=== PATIENT | male | born 1985 | race Caucasian/White ===

== ENCOUNTER 2020-06-29 18:06 | Emergency (ER) | payer BC ==
[2020-06-29 18:36] LABS: EOS # 0.4 (0.04-0.40); HEMATOCRIT 45.3 % (42.0-52.0); HEMOGLOBIN 14.9 g/dL (13.5-18.0); LYMPH# 3.1 (1.50-4.00); MEAN CELL VOLUME 86 fl (78-100); MEAN CORPUSCULAR HEMOGLOBIN 28 pg (27-31); MEAN CORPUSCULAR HGB CONC 33 g/dL (33-37); MEAN PLATELET VOLUME 9.3 fl (7.4-10.4); MONO # 0.8 (0.20-0.80); NEU # 5.6 (1.40-6.50); PLATELET COUNT 266 K/mm3 (130-400); RED BLOOD COUNT 5.29 M/mm3 (4.20-5.60); RED CELL DISTRIBUTION WIDTH 14.2 % (11.5-14.5); WHITE BLOOD COUNT 9.9 K/mm3 (4.8-10.8)
[2020-06-29 18:47] LABS: ALBUMIN 4.2 g/dL (3.5-5.0); POTASSIUM 3.9 mmol/L (3.5-5.1)
[2020-06-29 18:48] LABS: CALCIUM 9.5 mg/dL (8.3-10.5)
[2020-06-29 18:49] LABS: TOTAL PROTEIN 7.7 g/dL (6.4-8.3)
[2020-06-29 18:51] LABS: TOTAL BILIRUBIN 0.6 mg/dL (0.2-1.2)
[2020-06-29 19:01] LABS: D-DIMER 0.42 mg/L FEU (0.15-0.50)
[2020-06-29 20:01] VITALS: BP 141/99
== END 2020-06-29 20:01 | disposition home or self-care (01) ==
LOC: ED 18:06
PROVIDERS: Nurse Practitioner
DX: M79.18 Myalgia, other site (principal); Z83.2 Family history of diseases of the blood and blood-forming organs and certain disorders involving the immune mechanism

== ENCOUNTER 2021-05-10 17:06 | Emergency (ER) | payer BC ==
[2021-05-10 17:14] VITALS: BP 136/90
[2021-05-10 17:48] LABS: BASO # 0.04 K/mm3 (0.02-0.10); EOS # 0.51 K/mm3 (0.04-0.40); EOS % 4.9 % (0.0-4.0); HEMATOCRIT 48.3 % (42.0-52.0); HEMOGLOBIN 16.2 g/dL (13.5-18.0); LYMPH# 3.04 K/mm3 (1.50-4.00); MEAN CELL VOLUME 86 fl (78-100); MEAN CORPUSCULAR HEMOGLOBIN 29 pg (27-31); MEAN CORPUSCULAR HGB CONC 34 g/dL (33-37); MEAN PLATELET VOLUME 9.2 fl (7.4-10.4); MONO # 0.95 K/mm3 (0.20-0.80); NEU # 5.95 K/mm3 (1.40-6.50); PLATELET COUNT 284 K/mm3 (130-400); RED BLOOD COUNT 5.61 M/mm3 (4.20-5.60); RED CELL DISTRIBUTION WIDTH 13.5 % (11.5-14.5); WHITE BLOOD COUNT 10.5 K/mm3 (4.8-10.8)
[2021-05-10 17:58] LABS: ALBUMIN 4.2 g/dL (3.5-5.0); POTASSIUM 4.3 mmol/L (3.5-5.1); SODIUM 138 mmol/L (136-145)
[2021-05-10 18:00] LABS: CALCIUM 9.6 mg/dL (8.3-10.5)
[2021-05-10 18:01] LABS: GLUCOSE 122 mg/dL (75-110); TOTAL PROTEIN 8.4 g/dL (6.4-8.3)
[2021-05-10 18:02] LABS: CARBON DIOXIDE 24 mmol/L (22-29)
[2021-05-10 18:03] LABS: TOTAL BILIRUBIN 0.5 mg/dL (0.2-1.2)
[2021-05-10 18:06] LABS: AST-SGOT 80 U/L (5-34)
[2021-05-10 18:07] LABS: ALT/SGPT 120 U/L (0-55)
[2021-05-10 18:15] LABS: TROPONIN-I < 0.030 ng/mL (<0.030)
[2021-05-10] MEDS ORDERED: PROAIR HFA0.09 MG/AC IH (18:40)
[2021-05-10] MEDS ORDERED: MORGIDOX 1X100100 MG PO (18:40)
[2021-05-10] MEDS ORDERED: PREDNISONE20 M1 PO (18:40)
== END 2021-05-10 18:50 | disposition home or self-care (01) ==
LOC: ED 17:06
PROVIDERS: Nurse Practitioner
DX: N17.9 Acute kidney failure, unspecified (principal); I10 Essential (primary) hypertension; R05.9 Cough, unspecified; R09.1 Pleurisy; E66.9 Obesity, unspecified; Z87.891 Personal history of nicotine dependence; Z20.822 Contact with and (suspected) exposure to COVID-19

== ENCOUNTER 2024-04-24 09:55 | Emergency (ER) | payer MEDICAID ==
[~2024-04-24] VITALS: Ht 180.3 cm; Wt 213.6 kg
[~2024-04-24 09:55] MED LIST: MORGIDOX 1X100100 MG PO; PREDNISONE20 M1 PO; PROAIR HFA0.09 MG/AC IH
[2024-04-24] MEDS ORDERED: Morphine 4 MG/ML VIAL IV PRN (10:00)
[2024-04-24] MEDS ORDERED: NS 1,000 ML IV ONE (10:00)
[2024-04-24] MEDS ORDERED: Ondansetron 4 MG/2 ML VIAL IV ONE ×2 (10:15→11:30)
[2024-04-24 10:28] LABS: ALBUMIN 4.1 g/dL (3.5-5.0)
[2024-04-24] MEDS ORDERED: ZYLOPRIM 100MG100 MG (10:28)
[2024-04-24 10:29] LABS: CALCIUM 9.5 mg/dL (8.3-10.5)
[2024-04-24 10:31] LABS: TOTAL PROTEIN 7.8 g/dL (6.4-8.3)
[2024-04-24 10:32] LABS: TOTAL BILIRUBIN 0.5 mg/dL (0.2-1.2)
[2024-04-24 10:33] LABS: BASO # 0.01 K/mm3 (0.02-0.10); EOS # 0.34 K/mm3 (0.04-0.40); EOS % 4.2 % (0.0-4.0); HEMATOCRIT 46.5 % (42.0-52.0); HEMOGLOBIN 15.7 g/dL (13.5-18.0); LYMPH# 2.19 K/mm3 (1.50-4.00); MEAN CELL VOLUME 86 fl (78-100); MEAN CORPUSCULAR HEMOGLOBIN 29 pg (27-31); MEAN CORPUSCULAR HGB CONC 34 g/dL (33-37); MEAN PLATELET VOLUME 10.4 fl (7.4-10.4); MONO # 0.82 K/mm3 (0.20-0.80); NEU # 4.75 K/mm3 (1.40-6.50); PLATELET COUNT 209 K/mm3 (130-400); RED BLOOD COUNT 5.44 M/mm3 (4.20-5.60); RED CELL DISTRIBUTION WIDTH 13.2 % (11.5-14.5); WHITE BLOOD COUNT 8.1 K/mm3 (4.8-10.8)
[2024-04-24] MEDS ORDERED: Ketorolac 30 MG/ML VIAL IV ONE (11:15)
[2024-04-24 11:28] VITALS: BP 149/94
== END 2024-04-24 11:27 | disposition home or self-care (01) ==
LOC: ED 09:55
PROVIDERS: Family Medicine
DX: R11.2 Nausea with vomiting, unspecified (principal); R10.11 Right upper quadrant pain; E66.01 Morbid (severe) obesity due to excess calories; Z68.44 Body mass index [BMI] 60.0-69.9, adult
CPT/HCPCS: J1885; J2270; J2405; J7030